=== PATIENT | male | born 1965 | race Native Hawaiian/Other Pacific Islander ===

== ENCOUNTER 2016-08-26 11:30 | Observation (INO) | payer BC ==
[~2016-08-26] VITALS: Ht 185.4 cm; Wt 103.1 kg
[2016-08-26 12:00] VITALS: BP 129/90; TEMP 98.4
[2016-08-26 12:48] VITALS: BP 129/90; TEMP 98.4; Ht 185.4 cm; Wt 103.1 kg
[2016-08-26] MEDS ORDERED: ASA LOW STR81 MG OR (13:07)
[2016-08-26 13:09] LABS: PLATELET COUNT 150 K/uL (142-355)
[2016-08-26] MEDS ORDERED: LEVO0.1224 PO (13:11)
[2016-08-26 13:23] LABS: PARTIAL THROMBOPLASTIN TIME 23.6 SECONDS (24.5-33.6)
[2016-08-26 13:40] LABS: POTASSIUM 3.8 mmol/L (3.6-5.2); SODIUM 140 mmol/L (136-145)
[2016-08-26 16:08] VITALS: BP 133/87; TEMP 97.7
[2016-08-26 20:00] VITALS: BP 123/80; TEMP 97.8
[2016-08-27 00:12] VITALS: BP 109/73; TEMP 97.6
[2016-08-27 04:00] VITALS: BP 110/78; TEMP 97.9
[2016-08-27 05:18] LABS: PLATELET COUNT 136 K/uL (142-355)
[2016-08-27 05:43] LABS: POTASSIUM 4.3 mmol/L (3.6-5.2); SODIUM 140 mmol/L (136-145)
[2016-08-27 08:14] VITALS: BP 115/80; TEMP 98.1
--- NOTE | 2016-08-27 11:20 | NUR ---
MAKING ROUNDS. PT SITTING IN CHAIR AT BS. PT STATING HEADACHE BETTER BUT FEELING LIGHT HEADED WHILE SITTING BUT STANDING IT GETS BETTER. ORTHOSTATICS OBTAINED. SITTING - BP 107/75 P 59; STANDING - BP 116/78 P 66; LAYING BP 125/79 P 65. SPOKE WITH MAK SALINAS LPN TO MAKE MD AWARE. SHE LEFT MESSAGE WITH DR GOLDSTEIN REGARDING PT'S STATUS.
--- NOTE | 2016-08-27 11:35 | NUR ---
DR GOLDSTEIN CALLED BACK. NEW ORDERS RECEIVED. NS @ 125ML/HR
[2016-08-27 12:00] VITALS: BP 125/79; TEMP 98.1
[2016-08-27 16:00] VITALS: BP 131/85; TEMP 98.1
[2016-08-27 19:40] VITALS: BP 109/76; TEMP 97.9
[2016-08-28 00:10] VITALS: BP 114/81; TEMP 97.9
[2016-08-28 04:05] VITALS: BP 118/80; TEMP 97.8
[2016-08-28 04:58] LABS: PLATELET COUNT 127 K/uL (142-355)
[2016-08-28 05:15] LABS: POTASSIUM 3.9 mmol/L (3.6-5.2); SODIUM 140 mmol/L (136-145)
[2016-08-28 08:00] VITALS: BP 114/81; TEMP 98.1
[2016-08-28 12:00] VITALS: BP 132/97; TEMP 98.2
--- NOTE | 2016-08-28 12:30 | NUR ---
D/C INSTRUCTIONS GIVEN TO PT. IV D/C'D R FA 20G CATH TIP INTACT. TRANSPORT HOME.
== END 2016-08-28 12:42 | disposition home or self-care (01) ==
LOC: MED/SURG 11:30
PROVIDERS: Emergency Medicine; ADMIT Internal Medicine
DX: R00.0 Tachycardia, unspecified (principal); E03.8 Other specified hypothyroidism; R20.8 Other disturbances of skin sensation; R42 Dizziness and giddiness; R07.89 Other chest pain
CPT/HCPCS: 36415; 36591; 80053; 80162; 82550; 83735; 84439; 84443; 84484; 85027; 85610; 85730; 93005; 96365; 96366; 96372; 99220; G0378; G0379; J1650